=== PATIENT | male | born 1985 | race African-American/Black ===

== ENCOUNTER 2019-11-25 19:46 | Emergency (ER) | payer OTHER ==
[~2019-11-25] VITALS: Ht 175.3 cm; Wt 90.0 kg
[2019-11-25] MEDS ORDERED: ASPIRIN 81MG TABLET PO ONE (21:45)
[2019-11-25] MEDS ORDERED: VISCOUS LIDOCAINE 2% 15 ML UDC PO ONE (21:45)
[2019-11-25] MEDS ORDERED: MAGNESIUM/ALUMINUM HYDROXIDE/SIMETHICONE 30ML UDC PO ONE (21:45)
[2019-11-25 22:01] LABS: BASOPHILS % 0.2 % (0.0-2.0); EOSINOPHILS % 0.9 % (0.0-5.0); HEMATOCRIT. 48.6 % (42.0-52.0); HEMOGLOBIN. 16.5 g/dL (14.0-18.0); LYMPHOCYTES % 38.5 % (20.0-50.0); MEAN CORPUSCULAR HEMOGLOBIN 30.3 pg (28.0-32.0); MEAN CORPUSCULAR VOLUME 89.3 fL (80.0-94.0); MEAN PLATELET VOLUME 9.1 fl (7.4-10.4); MONOCYTES % 8.7 % (2.0-8.0); NEUTROPHILS % 51.7 % (40.0-76.0); PLATELET 283 x1000/uL (130-400); RED BLOOD CELL COUNT 5.45 mill/uL (4.7-6.1); RED CELL DISTRIBUTION WIDTH 13.1 % (11.6-14.6)
[2019-11-25 22:02] LABS: CHLORIDE 108 mEq/L (98-107)
[2019-11-25] MEDS ORDERED: KETOROLAC 30MG/ML VIAL IV ONE (22:45)
[2019-11-26 00:33] VITALS: BP 121/68
== END 2019-11-26 00:33 | disposition home or self-care (01) ==
LOC: ER 19:46
DX: M79.18 Myalgia, other site (principal); I10 Essential (primary) hypertension; F15.10 Other stimulant abuse, uncomplicated; F17.200 Nicotine dependence, unspecified, uncomplicated
CPT/HCPCS: 36415; 71045; 80053; 83880; 84484; 85025; 93005; 96374; 99285; J1885; Z7610